=== PATIENT | male | born 1925 | race Caucasian/White ===

== ENCOUNTER 2016-05-29 07:07 | Inpatient (IN) | payer OTHER ==
[2016-05-29] MEDS ORDERED: diphenhydrAMINE 25 MG CAP PO ONE (07:12)
[2016-05-29] MEDS ORDERED: DIAZEPAM 5 MG TAB PO ONE (07:12)
[2016-05-29] MEDS ORDERED: ceFAZolin 2 GM/DEXTROSE 100 ML IV ONE (07:12)
[2016-05-29] MEDS ORDERED: NS 1,000 ML IV ONE (07:12)
[2016-05-29] MEDS ORDERED: BACITRACIN IRRIGATION/NS 50,000 UNITS/1,000 ML BTL IRR ONE (07:12)
--- NOTE | 2016-05-29 07:34 | CPEKG ---
Heart Rate: 61 RR Interval: 984 P-R Interval: 268 QRSD Interval: 100 QT Interval: 432 QTC Interval: 435 P [place]: 45 QRS [place]: -76 EKG Severity - ABNORMAL ECG - EKG Impression: SINUS RHYTHM EKG Impression: MULTIPLE ATRIAL PREMATURE COMPLEXES EKG Impression: FIRST DEGREE AV BLOCK EKG Impression: LAD, CONSIDER LAFB OR INFERIOR INFARCT EKG Impression: BORDERLINE R WAVE PROGRESSION, ANTERIOR LEADS EKG Impression: BORDERLINE T ABNORMALITIES, LATERAL LEADS Electronically Signed By: Una Solis 29-May-2016 08:43:34
[2016-05-29 07:54] LABS: % IMMATURE GRANULYOCYTES 0.3 % (0.0-1.1); ABSOLUTE IMMATURE GRANULOCYTES 0.01 10^3/uL (0.00-0.10); ADD DIFF? NO; ADD MORPH? NO; ADD SCAN? NO; ATYPICAL LYMPHOCYTE FLAG 0 (0-99); FRAGMENT RBC FLAG 0 (0-99); HEMATOCRIT 42.9 % (40.0-51.0); HEMOGLOBIN 14.7 g/dL (13.7-17.5); LEFT SHIFT FLG 0 (0-99); LIPEMIA HEMOLYSIS FLAG 90 (0-99); MEAN CELL HEMOGLOBIN CONCENTR. 34.3 g/dL (32.4-36.7); MEAN CELL VOLUME 93.5 fL (81.5-99.8); MEAN PLATELET VOLUME 11.9 fL (8.7-11.7); PLATELET CLUMPS FLAG 10 (0-99); PLATELET COUNT 110 10^3/uL (150-400); RED BLOOD CELL COUNT 4.59 10^6/uL (4.40-6.38)
[2016-05-29 08:03] LABS: INR 1.11 (0.83-1.16); PROTIME(PATIENT) 14.2 SEC (12.0-15.0)
[2016-05-29 08:21] LABS: ANION GAP 11 mEq/L (8-16); CARBON DIOXIDE 26 mEq/l (22-31); CHLORIDE 105 mEq/L (97-110); CREATININE 1.4 mg/dL (0.7-1.3); GLOMERULAR FILTRATION RATE 48; GLUCOSE 91 mg/dL (70-100); POTASSIUM 4.3 mEq/L (3.5-5.2); SODIUM 142 mEq/L (134-144)
[2016-05-29] MEDS ORDERED: LIDOCAINE 1% 30 ML SDV ONE (08:21)
[2016-05-29] MEDS ORDERED: IOPAMIDOL (ISOVUE-300) 50 ML VIAL IV ONE (08:22)
[2016-05-29] MEDS ORDERED: fentaNYL 100 MCG/2 ML INJ ONE (08:22)
[2016-05-29] MEDS ORDERED: BUPIVACAINE 0.5% 30 ML SDV ONE (08:22)
[2016-05-29] MEDS ORDERED: MIDAZOLAM 2 MG/2 ML VIAL ONE (08:22)
[2016-05-29] MEDS ORDERED: TEMAZEPAM 15 MG CAP PO PRN (10:10)
--- NOTE | 2016-05-29 10:25 | CPEKG ---
Heart Rate: 64 RR Interval: 938 P-R Interval: 246 QRSD Interval: 108 QT Interval: 452 QTC Interval: 467 P [place]: 0 QRS [place]: -72 T Wave [place]: -52 EKG Severity - ABNORMAL ECG - EKG Impression: ATRIAL-PACED COMPLEXES EKG Impression: FIRST DEGREE AV BLOCK EKG Impression: LAD, CONSIDER LAFB OR INFERIOR INFARCT EKG Impression: PROLONGED QT INTERVAL Electronically Signed By: Una Solis 29-May-2016 15:58:27
[2016-05-29] MEDS ORDERED: ZOLPIDEM TARTRATE 5 MG TAB PO PRN (10:26)
[2016-05-29] MEDS ORDERED: OXYCODONE/APAP 5/325 TAB PO PRN (10:33)
[2016-05-29] MEDS ORDERED: IBUPROFEN 200 MG TAB PO ONE ×2 (10:52→11:00)
--- NOTE | 2016-05-29 12:45 | ECHO ---
[id number] + + [address] : : [place] [address] : : [phone] + + Adult Echocardiographic Report + -----+ :Name: Michoacano SANTOsamantharichard Date: 05/29/2016 10:57 AM : : Hospital Admission Number: [id number] Location : [facility]: :: 1925 Gender: Male : :Age: 89 yrs Race: WH : :Reason For Study: Pericardial Effusion s/p pacer : + -----+ MMode/2D Measurements & Calculations IVSd: 2.0 cm LVIDd: 3.7 cm FS: 22.4 % LVPWd: 1.8 cm LVIDs: 2.9 cm EDV(Teich): 59.0 ml ESV(Teich): 31.9 ml EF(Teich): 45.9 % Normal Measurement Values: + + :LVIDd (3.5-5.7cm) IVSd (0.6-1.1cm) LVPWd (0.6-1.1cm) Aortic Root (2.0-3.7cm)Left Atrium (1.5-4.0cm): :LV Vol(d) (76-115ml) LV Vol(s) (29-48ml) [place] Fraction (50-65%)PV Evaristo (0.6- 1.2m/s) TV Evaristo (0.4-1.0m/s) : :MV E Evaristo (0.8-1.0m/s)MV A Evaristo (0.3-1.0m/s)LVOT Evaristo (0.7-1.2m/s) Asc Ao Evaristo ( 0.9-1.8m/s) : + + Left Ventricle The left ventricular cavity is small. There is severe concentric left ventricular hypertrophy. Ejection Fraction = 45%. The left ventricular ejection fraction is calculated at 45.9 %. The left ventricular wall motion is normal. Right Ventricle There is a pacemaker lead in the right ventricle. Atria The left atrial size is normal. There is a catheter/pacemaker lead seen in the right atrium. Mitral Valve The mitral valve leaflets appear normal. There is no evidence of stenosis, fluttering, or prolapse. Tricuspid Valve Normal tricuspid valve. Pericardium/Pleural Small to Moderate pericardial effusion. Conclusion This is a limited study to evaluate pericardial effusion s/p pacer. (1) Left ventricular systolic ejection fraction was mildly reduced (45%) - mild, global hypokinesis (2) Severe, concentric left ventricular hypertrophy (3) Diastolic function was not assessed (4) Grossly normal right ventricular size and function - pacer lead was noted to the right ventricular chamber (5) Normal atrial dimensions (6) Grossly normal mitral valve (7) Poor visualization of the aortic valve (8) Grossly normal tricuspid valve (9) Poor visualization of the pulmonic valve (10) Small to moderate pericardial effusion Final Reading Physician: Axel Carvajal signed on 05/29/2016 12:45 PM Ordering Physician: Raad Gray Performed By: Yoko Barrera
[2016-05-29] MEDS ORDERED: KETOROLAC 30 MG/1 ML SDV ONE (13:34)
[2016-05-29] MEDS ORDERED: KETOROLAC 15 MG/1 ML SDV IVP ONE (14:00)
[2016-05-29] MEDS: IBUPROFEN 200 MG TAB PO SCH ×3 (17:29→22:10)
[2016-05-29] MEDS ORDERED: IBUPROFEN 800 MG TAB PO SCH (22:00)
[2016-05-30 05:35] LABS: % IMMATURE GRANULYOCYTES 0.2 % (0.0-1.1); ABSOLUTE IMMATURE GRANULOCYTES 0.01 10^3/uL (0.00-0.10); ADD DIFF? NO; ADD MORPH? NO; ADD SCAN? NO; ATYPICAL LYMPHOCYTE FLAG 0 (0-99); FRAGMENT RBC FLAG 0 (0-99); HEMATOCRIT 38.7 % (40.0-51.0); HEMOGLOBIN 13.2 g/dL (13.7-17.5); LEFT SHIFT FLG 0 (0-99); LIPEMIA HEMOLYSIS FLAG 90 (0-99); MEAN CELL HEMOGLOBIN 32.1 pg (27.9-34.1); MEAN CELL HEMOGLOBIN CONCENTR. 34.1 g/dL (32.4-36.7); MEAN CELL VOLUME 94.2 fL (81.5-99.8); PLATELET CLUMPS FLAG 0 (0-99); PLATELET COUNT 103 10^3/uL (150-400); RED BLOOD CELL COUNT 4.11 10^6/uL (4.40-6.38); RED CELL DISTRIBUTION WIDTH 12.9 % (11.5-15.2)
[2016-05-30 05:44] LABS: ANION GAP 9 mEq/L (8-16); CARBON DIOXIDE 23 mEq/l (22-31); CHLORIDE 107 mEq/L (97-110); CREATININE 1.2 mg/dL (0.7-1.3); GLOMERULAR FILTRATION RATE 57; GLUCOSE 96 mg/dL (70-100); SODIUM 139 mEq/L (134-144)
[2016-05-30] MEDS: IBUPROFEN 200 MG TAB PO SCH ×2 (07:13→10:32)
[2016-05-30] MEDS ORDERED: Herbals/Supplements -Info Only PO SCH (09:00)
[2016-05-30] MEDS ORDERED: NON-FORMULARY NEW DRUG (Omeprazole [Prilosec 20 Mg] 20 MG) PO SCH (09:00)
--- NOTE | 2016-05-30 09:11 | CPEKG ---
Heart Rate: 73 RR Interval: 822 P-R Interval: 262 QRSD Interval: 88 QT Interval: 428 QTC Interval: 472 P [place]: 2 QRS [place]: -76 T Wave [place]: -6 EKG Severity - ABNORMAL ECG - EKG Impression: ATRIAL-PACED COMPLEXES EKG Impression: FIRST DEGREE AV BLOCK EKG Impression: LAD, CONSIDER LAFB OR INFERIOR INFARCT EKG Impression: BORDERLINE R WAVE PROGRESSION, ANTERIOR LEADS Electronically Signed By: Una Solis 30-May-2016 17:09:43
--- NOTE | 2016-05-30 09:20 | DX ---
Chest, PA and Lateral History: Post pacemaker placement Comparison: December 06, 2015 Findings: A left chest wall pacer device and associated bipolar pacer leads overlie the enlarged hear t. The pacer leads are in good position. There is no pneumothorax. Minimal posterior costophrenic gu tter blunting suggests tiny pleural effusions. The pulmonary vascularity is not plethoric. There is c hronic mild tortuosity of the descending thoracic aorta with atherosclerotic calcification in the arc h. Lungs clear. EKG leads overlie the chest. There is a dissolving tablet in the stomach. Impression: 1. Excellent pacer placement. 2. No pneumothorax. 3. Cardiomegaly without failure. There is prominence of the left ventricular contour suggesting chron ic hypertension.
--- NOTE | 2016-05-30 12:28 | ECHO ---
[id number] + + [address] : : [place] [address] : : [phone] + + Adult Echocardiographic Report + -----+ :Name: Michoacano SANTOsamantharichard Date: 05/30/2016 09:38 AM BP: 107/85 mmHg : : Hospital Admission Number: [id number] Location : 217: :: 1925 Gender: Male : :Age: 89 yrs Race: WH : :Reason For Study: reassess for pericardial effusion : :History: S/P pacemaker : + -----+ MMode/2D Measurements & Calculations IVSd: 1.9 cm LVIDd: 3.8 cm FS: 21.9 % LVPWd: 1.6 cm LVIDs: 3.0 cm EDV(Teich): 63.5 ml ESV(Teich): 35.0 ml EF(Teich): 44.9 % Normal Measurement Values: + + :LVIDd (3.5-5.7cm) IVSd (0.6-1.1cm) LVPWd (0.6-1.1cm) Aortic Root (2.0-3.7cm)Left Atrium (1.5-4.0cm): :LV Vol(d) (76-115ml) LV Vol(s) (29-48ml) Ejec Fraction (50-65%)PV Evaristo (0.6- 1.2m/s) TV Evaristo (0.4-1.0m/s) : :MV E Evaristo (0.8-1.0m/s)MV A Evaristo (0.3-1.0m/s)LVOT Evaristo (0.7-1.2m/s) Asc Ao Evaristo ( 0.9-1.8m/s) : + + Left Ventricle There is severe concentric left ventricular hypertrophy. Left ventricular systolic function is mild to moderately reduced. Ejection Fraction = 40 to 45%. Pericardium/Pleural Small to Moderate pericardial effusion. The pericardial effusion has increased slightly in size compared to 05/29/16. Conclusion Limited study to reassess pericardial effusion. Small to Moderate pericardial effusion. The pericardial effusion has increased slightly in size compared to 05/29/16. There is severe concentric left ventricular hypertrophy. Left ventricular systolic function is mild to moderately reduced. Ejection Fraction = 40 to 45%. Final Reading Physician: Axel Woods signed on 05/30/2016 12:27 PM Ordering Physician: Raad Gray Performed By: Katty Cancino
--- NOTE | 2016-05-30 12:28 | PDCARPN ---
Cardiology Progress Note Chief Complaint: s/p pacer Assessment/Plan: Assessment: 89 y/o M with a history of fatigue related to chronotropic incompetence and pauses. He is s/p DDDR [place] pacer on 05/[address] Gray. He had CP post procedure and was found to have a small pericardial effusion which was thought to be more related to pericarditis than lead perforation. His pain is controlled with NSAIDs. A echo the following day showed a small progression of the effusion to mild to moderate. Also, had a small hematoma which is stable. Will continue to monitor one additional day and get limited echo tomorrow. He also has severe LVH and a CMP. Plan: 1. s/p pacer complicated by small hematoma and pericarditis. - limited echo tomorrow - monitor hematoma - likely d/c tomorrow. - continue NSAIDS 05/30/16 12:21 Subjective: PT denies any CP or SOB. Objective: Vital Signs (8 Hrs) Temp Pulse Resp BP Pulse Ox 05/30/16 11:56 36.9 C 73 19 102/67 98 05/30/16 07:54 37.0 C 85 16 107/85 H 97 Intake/Output (24 Hrs) 05/29/16 05/30/16 05/31/16 05:59 05:59 05:59 Intake Total 1460 Output Total 1335 Balance 125 Intake: Oral (ml) 850 IV Intake (ml) 550 IV Infused (ml) 60 ceFAZolin 1 GM/DEXTROSE 60 50 ml @ 200 mls/hr IV Q8HRS [facility] Rx#:[id number] Output: Urine (ml) 1335 Urinal 1335 Other: Weight 68 kg Number of Voids Urinal 1 Result Diagrams: 05/30/16 05:02 05/30/16 05:02 EKG: intermittant pacing - Physical Exam Constitutional: WDWN Cardiovascular: regular rate and rhythm, no murmurs, no rubs, other (chest wall pacer site shows small hematoma with ecchymosis. No infection) Respiratory: clear to auscultate bilat, no crackles, no wheezes Skin: no edema Neurologic: AAOx3 ICD10 Worksheet Patient Problems: Problems Problem Status Diagnosed Pacemaker complications Acute - ICD10 Problem Qualifiers (1) Pacemaker complications
[2016-05-30] MEDS: GLUCOSAMINE/CHONDROITIN CAP PO SCH (13:50)
[2016-05-30] MEDS: CHOLECALCIFEROL VIT D3 2,000 UNITS TAB/CAP PO SCH (13:50)
[2016-05-30] MEDS: PANTOPRAZOLE SODIUM 40 MG TAB PO SCH (13:51)
--- NOTE | 2016-05-30 15:01 | EPPROC ---
Electrophysiology Procedure Note: PROCEDURE PERFORMED: * Implantation of an A/V Pacemaker * Subclavian vein angiography * Fluoroscopy INDICATION: Pt with multiple episodes of pauses and documented chronotropic incompetence with resulting fatigue and dizziness. Hence it was decided to implant dual chamber pacemaker. PROCEDURE NOTE: Patient presented to the cardiac catherization laboratory in a fasting, post absorptive state. Cardiac cathead worker nurse administered moderate sedation. The left infraclavicular area was prepped and draped in the usual sterile fashion. Lidocaine plus bupivacaine was used for local anesthesia. Left subclavian venography was performed by injection of iodinated contrast into the left antecubital vein. This was done to assure patency of the vein and also to assess for any anatomical aberrations. Using a combination of blunt and sharp dissection and electrocautery, the dissection was carried down to the prepectoral fascia. All bleeding was controlled with electrocautery. Fluoroscopy was utilized during the entire procedure for venous access and placement of the leads. Using the usual technique, left celphalic vein was accessed and a glidewire was placed. Through this initially a 9F and later a 7F sheath was passed. Placement of the guidewires into the venous system was confirmed by low- pressure blood return and also by visualizing the guidewires advancing into the inferior vena cava. A purse string suture was applied around the guidewires. An active fixation ventricular lead was advanced into the right ventricular apex and screwed in place. An active fixation atrial lead was advanced into the right atrial appendage and screwed in place. The peel away sheaths were removed. Pacing thresholds, sensing parameters and lead impedances were measured. There was no diaphragmatic stimulation at maximum output. The leads were sutured to the prepectoral fascia with 3 nonabsorbable sutures each. The pocket was created and it was flushed using antibiotic solution. It was inspected for any bleeding. The leads were attached to the pacemaker securely. The pacemaker was inserted into the pocket and secured in place with a nonabsorbable suture. Fluoroscopy was performed in CELIS and VÍCTOR planes to verify right-sided placement of the leads. Also fluoroscopy of the pacemaker pocket was performed. The pacemaker pocket was closed in 3 layers with absorbable vicryl sutures. Steristrips were placed. Appropriate dressing was applied. The patient left the cardiac catheterization laboratory in stable condition. Serial Numbers: * Device: [employer] [address] [id number] * Atrial Lead: [employer] Tendril 8TC [id number] * Ventricular Lead: [place] Tendril 8TC [id number] Stimulation Thresholds & Impedance Measurements: * Atrial Lead 2.9mV, 0.8@0.5ms, 448Ohms * Ventricular Lead 5.8mV, 0.4@0.4ms, 463Ohms Rik Pacing Parameters * Pacing mode: DDDR * Lower rate: 60 * Upper tracking rate: 120 * Upper sensor rate: 120 Patient Problems: Problems Problem Status Diagnosed Pacemaker complications Acute
[2016-05-31] MEDS: IBUPROFEN 200 MG TAB PO SCH ×4 (01:19→22:19)
[2016-05-31] MEDS: CHOLECALCIFEROL VIT D3 2,000 UNITS TAB/CAP PO SCH (09:27)
[2016-05-31] MEDS: PANTOPRAZOLE SODIUM 40 MG TAB PO SCH (09:28)
[2016-05-31] MEDS: GLUCOSAMINE/CHONDROITIN CAP PO SCH (09:28)
[2016-05-31] MEDS: DOCUSATE SODIUM 100 MG CAP PO SCH (09:53)
[2016-05-31] MEDS ORDERED: PNEUMOC 13-VAL CONJ-DIP CRM/PF 0.5 ML SYR IM ONE (10:57)
--- NOTE | 2016-05-31 11:20 | ECHO ---
[id number] + + [address] : : [facility] [address] : : [phone] + Adult Echocardiographic Report + -----+ :Name: Mae SANTO Date: 05/31/2016 07:27 AM : : Hospital Admission Number: [id number] Location : 217: :: 1925 Gender: Male Height: 67 in : :Age: 89 yrs Race: WH Weight: 170 lb : :Reason For Study: Eval pericardial effusion : : BSA: 1.9 meters2 : + -----+ Left Ventricle There is moderate concentric left ventricular hypertrophy. The left ventricular ejection fraction is normal. The left ventricular wall motion is normal. Pericardium/Pleural Small to Moderate pericardial effusion. Conclusion Limited 2-D echo No significant change from yesterday's study. Small to Moderate pericardial effusion. The left ventricular ejection fraction is normal. The left ventricular wall motion is normal. There is moderate concentric left ventricular hypertrophy. In comparison to prior echocardiogram from yesterday, there does not appear to be a substantial change noted. Final Reading Physician: Axel Carvajal signed on 05/31/2016 11:20 AM Ordering Physician: Anette Coon Performed By: Miryam Cheema, KIMBERLYCS
--- NOTE | 2016-05-31 12:38 | PDCARPN ---
Cardiology Progress Note Chief Complaint: No complaints today. Patient was initially seen earlier today, and reported that he felt well. Patient just seen again, and feels that the "hypoglycemia" might be acting up. Assessment/Plan: Assessment: Patient is an 89 y/o male with history of SSS s/p PPM (05/29/16) with small pericardial effusion post procedure with progression. Belief that the patient had a small degree of pericarditis post pacer implant (rather than lead perforation). No pocket revision or lead revision was performed (or indicated) . Patient feeling well today, but the second time he was visited, he reported that he was not feeling as well as initially. Echocardiogram pre Pacer without effusion. Post pacer, a small to moderate pericardial effusion was noted. Today's echocardiogram continues to reveal a small to moderate effusion. No complaints of chest pains or pressure. No PND or orthopnea. Plan: (1) Recommendations for patient to stay one day further (2) Would continue therapy on NSAIDs as at present (3) Ambulation today (4) PO fluids should be maintained today Subjective: No cardiovascular complaints Reviewed/Discussed With: multidisciplinary team Time Spent With Patient: 20 minutes Objective: Vital Signs (8 Hrs) Temp Pulse Resp BP Pulse Ox 05/31/16 11:18 36.7 C 78 15 96/59 L 91 L 05/31/16 07:37 36.8 C 70 20 114/71 91 L Intake/Output (24 Hrs) 05/30/16 05/31/16 06/01/16 05:59 05:59 05:59 Intake Total 1460 700 Output Total 1335 Balance 125 700 Intake: Oral (ml) 850 700 IV Intake (ml) 550 IV Infused (ml) 60 ceFAZolin 1 GM/DEXTROSE 60 50 ml @ 200 mls/hr IV Q8HRS [facility] Rx#:[id number] Output: Urine (ml) 1335 Urinal 1335 Other: Weight 68 kg Intake Quantity npo after mn Sufficient Number of Voids Urinal 1 Toilet 1 Result Diagrams: 05/30/16 05:02 05/30/16 05:02 Telemetry: sinus rhythm with intermittent atrial pacing - Physical Exam Constitutional: WDWN, healthy appearing, no apparent distress Eyes: PERRL Ears, Nose, Mouth, Throat: moist mucous membranes Cardiovascular: regular rate and rhythm, systolic murmur Peripheral Pulses: 2+: dorsalis-pedis (R), dorsalis-pedis (L) Respiratory: clear to auscultate bilat, no crackles Gastrointestinal: normoactive bowel sounds Skin: no edema Musculoskeletal: no muscular tenderness Neurologic: AAOx3, CN II-XII grossly intact Psychiatric: cooperative, interactive, following commands ICD10 Worksheet Patient Problems: Problems Problem Status Diagnosed Pacemaker complications Acute
[2016-06-01 00:09] VITALS: O2SAT 94
[2016-06-01 08:45] VITALS: BP 94/51; PULSE 68; RESP 14; TEMP 98.2
[2016-06-01] MEDS: GLUCOSAMINE/CHONDROITIN CAP PO SCH (09:12)
[2016-06-01] MEDS: DOCUSATE SODIUM 100 MG CAP PO SCH (09:12)
[2016-06-01] MEDS: PANTOPRAZOLE SODIUM 40 MG TAB PO SCH (09:12)
[2016-06-01] MEDS: CHOLECALCIFEROL VIT D3 2,000 UNITS TAB/CAP PO SCH (09:13)
[2016-06-01] MEDS: IBUPROFEN 200 MG TAB PO SCH ×2 (09:13→09:26)
--- NOTE | 2016-06-01 09:33 | PDCARPN ---
Cardiology Progress Note Chief Complaint: No complaints today. Patient feels that this morning is one of his best since the admission Assessment/Plan: Assessment: 06-01-16 No voiced cardiovascular complaints today. No chest pains or pressure. Echocardiogram with possible, slight worsening of the fluid to the pericardium. There appears to be slightly more "wiggle" to the right ventricular chamber ( very subjective). Patient reporting that he feels very good today AND slept very well overnight. No PND or orthopnea. No lower extremity swelling has been noted. Eating every 2-3 hours led to an improvement in the patient's "hypoglycemic" feelings. 05-31-16 Patient is an 89 y/o male with history of SSS s/p PPM (05/29/16) with small pericardial effusion post procedure with progression. Belief that the patient had a small degree of pericarditis post pacer implant (rather than lead perforation). No pocket revision or lead revision was performed (or indicated) . Patient feeling well today, but the second time he was visited, he reported that he was not feeling as well as initially. Echocardiogram pre Pacer without effusion. Post pacer, a small to moderate pericardial effusion was noted. Today's echocardiogram continues to reveal a small to moderate effusion. No complaints of chest pains or pressure. No PND or orthopnea. Plan: (1) Plan to discharge the patient to home today (2) Will arrange for the patient to have outpatient follow up tomorrow (if possible) with [facility] (3) Would continue with ambulation as at present at home (4) PO fluids should continue (5) I spoke with Dr. Tereza Gray today, and he is in agreement. Furthermore, we have provided the patient with Dr. Gray's cell phone for any questions that arise Subjective: Patient feeling well today. No cardiovascular complaints Reviewed/Discussed With: multidisciplinary team Time Spent With Patient: 20 minutes Objective: Vital Signs (8 Hrs) Temp Pulse Resp BP Pulse Ox 06/01/16 08:42 36.8 C 68 14 94/51 L 94 06/01/16 04:00 36.7 C 80 17 106/62 94 Intake/Output (24 Hrs) 05/31/16 06/01/16 06/02/16 05:59 05:59 05:59 Intake Total 700 1400 Balance 700 1400 Intake: Oral (ml) 700 1400 Other: Intake Quantity npo after mn Yes Sufficient Number of Voids Toilet 1 2 Number of Stools Toilet 1 Result Diagrams: 05/30/16 05:02 05/30/16 05:02 Telemetry: intermittent ventricular pacing - Physical Exam Constitutional: WDWN, healthy appearing, no apparent distress Eyes: PERRL, EOMI Ears, Nose, Mouth, Throat: moist mucous membranes Cardiovascular: regular rate and rhythm, systolic murmur Peripheral Pulses: 2+: dorsalis-pedis (R), dorsalis-pedis (L) Respiratory: clear to auscultate bilat, no crackles, no wheezes Skin: no rashes, no edema Musculoskeletal: no muscular tenderness Neurologic: AAOx3, CN II-XII grossly intact Psychiatric: cooperative, interactive, following commands ICD10 Worksheet Patient Problems: Problems Problem Status Diagnosed Pacemaker complications Acute
--- NOTE | 2016-06-01 09:41 | PDDCSUM ---
Discharge Summary Discharge Summary: ADMISSION DATE: 05-29-16 DISCHARGE DATE: 06-01-16 PROCEDURES PERFORMED: (1) PERMANENT PACER IMPLANTATION (2) SERIAL ECHOCARDIOGRAPHY SUMMARY: Patient was taken to the EP lab with placement of the PPM on 05-29-16. Post procedure, there appeared to be some pericardial effusion noted. Given this findings, and the approximation to the patient's pacer placement, we opted to keep the patient a few additional days and monitor the pericardial fluid size. Over the next several days, there continued to be the presence of pericardial fluid. No haemodynamic compromise has been appreciated. Today, the patient reports that he is feeling the best he has felt since the admission. Echocardiogram with questionable progression of fluid. I did speak with Dr. Tereza Gray about the findings noted, and the patient's lack of symptoms. Plan to discharge the patient to home today. Would arrange for patient to be seen by cardiology tomorrow or Thursday
--- NOTE | 2016-06-01 12:10 | ECHO ---
[id number] + + [address] : : [place] [address] : : [phone] + + Adult Echocardiographic Report + -----+ :Name: Mae SANTO Date: 06/01/2016 07:34 AM : : Hospital Admission Number: [id number] Location : 217: :: 1925 Gender: Male : :Age: 89 yrs Race: WH : :Reason For Study: Eval pericardial effusion : :History: New pacer : + -----+ Pericardium/Pleural Moderate size pericardial effusion. Conclusion Limited 2-D echo. Moderate size pericardial effusion - there may be some progression or evolution of the effusion. No tamponade. Final Reading Physician: Axel Carvajal signed on 06/01/2016 12:09 PM Ordering Physician: Raad Gray Performed By: Miryam Cheema, KIMBERLYCS
== END 2016-06-01 12:19 | disposition home or self-care (01) | DRG 243 ==
LOC: FCATH 07:07 → F2W 10:09 → OBSVTOIN 05-31 12:39
PROVIDERS: ADMIT Internal Medicine Cardiovascular Disease; ATTEND Internal Medicine Cardiovascular Disease
PROC: 02HK3JZ Insertion of Pacemaker Lead into Right Ventricle, Percutaneous Approach (ICD-10-PCS; principal; 2016-05-30)
PROC: 02H63JZ Insertion of Pacemaker Lead into Right Atrium, Percutaneous Approach (ICD-10-PCS; principal; 2016-05-30)
PROC: 0JH606Z Insertion of Pacemaker, Dual Chamber into Chest Subcutaneous Tissue and Fascia, Open Approach (ICD-10-PCS; principal; 2016-05-30)
DX: I49.5 Sick sinus syndrome (principal); I31.3 Pericardial effusion (noninflammatory); R55 Syncope and collapse; R53.83 Other fatigue
CPT/HCPCS: C1769; C1785; C1898; G0009; G0378; J0690; J1885; J2250; J3010; Q9967

== ENCOUNTER 2016-06-04 07:51 | Inpatient (IN) | payer OTHER ==
--- NOTE | 2016-06-04 08:02 | EDPHY ---
H & P Time Seen by Provider: 06/04/16 07:56 HPI/ROS: CHIEF COMPLAINT: Chest fullness and bruising HISTORY OF PRESENT ILLNESS: The patient is an 89-year-old man who presents by EMS to the emergency department for chest fullness and bruising after pacemaker placement. 6 days ago he had a dual-chamber pacemaker placed by Dr. Gray for history of multiple pauses and chronotropic incompetence resulting in fatigue and dizziness. The procedure was complicated by a pericardial effusion afterwards so he stayed in the hospital for 3 days receiving serial echocardiograms. There was very minimal change in the size of his pericardial effusion. He was discharged on the . He denies fevers or cough or difficulty breathing. He does state that occasionally has to take a deep breath but does not feel overtly short of breath. He denies chest pain. He is concerned that the fluid around his heart is increased. He is not on any blood thinners. REVIEW OF SYSTEMS: Constitutional: denies: chills, fever, recent illness, recent injury EENTM: denies: blurred vision, double vision, nose congestion Respiratory: See HPI Cardiac: See HPI Gastrointestinal/Abdominal: denies: abdominal pain, diarrhea, nausea, vomiting, blood streaked stools Genitourinary: denies: dysuria, frequency, hematuria, pain Musculoskeletal: denies: joint pain, muscle pain Skin: denies: lesions, rash, jaundice, bruising Neurological: denies: headache, numbness, paresthesia, tingling, dizziness, weakness Hematologic/Lymphatic: denies: blood clots, easy bleeding, easy bruising Immunologic/allergic: denies: HIV/AIDS, transplant EXAM: GENERAL: Well-appearing, well-nourished and in no acute distress. HEAD: Atraumatic, normocephalic. EYES: Pupils equal round and reactive to light, extraocular movements intact, sclera anicteric, conjunctiva are normal. ENT: TMs normal, nares patent, oropharynx clear without exudates. Moist mucous membranes. NECK: Normal range of motion, supple without lymphadenopathy or JVD. LUNGS: Breath sounds clear to auscultation bilaterally and equal. No wheezes rales or rhonchi. HEART: Irregular rhythm without murmurs, rubs or gallops. Significant bruising to chest, abdomen and flank likely from previous procedure ABDOMEN: Soft, nontender, normoactive bowel sounds. No guarding, no rebound. No masses appreciated. BACK: No CVA tenderness, no spinal tenderness, step-offs or deformities EXTREMITIES: Normal range of motion, no pitting or edema. No clubbing or cyanosis. NEUROLOGICAL: Cranial nerves II through XII grossly intact. Normal speech, normal gait. 5/5 strength, normal movement in all extremities, normal sensation PSYCH: Normal mood, normal affect. SKIN: Warm, dry, normal turgor, no visible rashes or lesions. Source: Patient Exam Limitations: No limitations - Medical/Surgical History Hx Asthma: No Hx Chronic Respiratory Disease: No Hx Diabetes: No Hx Cardiac Disease: Yes Hx Renal Disease: No Hx Cirrhosis: No Hx Alcoholism: No Hx HIV/AIDS: No Hx Splenectomy or Spleen Trauma: No Other PMH: arthritis, skin CA, hypoglycemia, insomnia, GERD, SOB, lower extremity swelling - Family History Significant Family History: Hypertension - Social History Smoking Status: Never smoked Alcohol Use: Sober Drug Use: None Constitutional: Initial Vital Signs Temperature (C) 36.3 C 06/04/16 07:52 Heart Rate 73 06/04/16 07:52 Respiratory Rate 20 06/04/16 07:52 Blood Pressure 121/88 H 06/04/16 07:52 O2 Sat (%) 97 06/04/16 07:52 O2 Delivery Mode Room Air Allergies/Adverse Reactions: latex Allergy (Verified 05/29/16 07:42) Home Medications: Medication Instructions Recorded Cholecalciferol Vit D3 [Vitamin D3 2,000 units PO DAILY 05/29/16 2000 units tab (OTC)] Glucosamine/Chondroitin 1 each PO DAILY 05/29/16 [Glucosamine/Chondroitin (*)] Herbals/Supplements -Info Only 1 ea PO DAILY 05/29/16 Omeprazole [Prilosec 20 mg] 20 mg PO DAILY 05/29/16 Temazepam 7.5 mg PO HS PRN 06/04/16 Medical Decision Making - Diagnostics EKG Interpretation: An EKG obtained and was read and documented in trace view. Please see trace view for full reading and report. Sinus rhythm, pacer spikes not visible. First-degree block, similar to previous ED Course/Re-evaluation: 8:20 a.m. echocardiogram reveals moderately increased pericardial effusion with some right atrial collapse maybe right ventricle as well. The helicopter technician has paged Cardiology. patient is also complaining of a mild headache since last night. Will treat him with Tylenol for this. No neurologic deficits. 8:45 a.m. I spoke with Dr. Gray over the phone who is on vacation. He is relieved that his patient arrived. 8:50 a.m. I discussed the case with Dr. Steven Moctezuma who is concerned about a lead perforating the myocardium. He has ordered a CT scan. I will place a bed for admission. Differential Diagnosis: Partial list of the Differential diagnosis considered include but were not limited to; pericardial effusion, myocardial perforation, pericardial tamponade and although unlikely based on the history and physical exam, I also considered PE, pneumonia. - Data Points Laboratory Results: Laboratory Results 06/04/16 08:15 06/04/16 08:15 06/04/16 08:15 WBC 4.69 10^3/uL (3.80-9.50) RBC 3.81 L 10^6/uL (4.40-6.38) Hgb 12.1 L g/dL (13.7-17.5) Hct 37.1 L % (40.0-51.0) MCV 97.4 fL (81.5-99.8) MCH 31.8 pg (27.9-34.1) MCHC 32.6 g/dL (32.4-36.7) RDW 13.2 % (11.5-15.2) Plt Count 101 L 10^3/uL (150-400) MPV 12.1 H fL (8.7-11.7) Neut % (Auto) 76.1 H % (39.3-74.2) Lymph % (Auto) 12.2 L % (15.0-45.0) Bacon % (Auto) 7.5 % (4.5-13.0) Eos % (Auto) 3.6 % (0.6-7.6) Baso % (Auto) 0.4 % (0.3-1.7) Nucleat RBC Rel Count 0.0 % (0.0-0.2) Absolute Neuts (auto) 3.57 10^3/uL (1.70-6.50) Absolute Lymphs (auto) 0.57 L 10^3/uL (1.00-3.00) Absolute Monos (auto) 0.35 10^3/uL (0.30-0.80) Absolute Eos (auto) 0.17 10^3/uL (0.03-0.40) Absolute Basos (auto) 0.02 10^3/uL (0.02-0.10) Absolute Nucleated RBC 0.00 10^3/uL (0-0.01) Immature Gran % 0.2 % (0.0-1.1) Immature Gran # 0.01 10^3/uL (0.00-0.10) PT 14.5 SEC (12.0-15.0) INR 1.14 (0.83-1.16) APTT 27.7 SEC (23.0-38.0) Sodium 145 H mEq/L (134-144) Potassium 4.3 mEq/L (3.5-5.2) Chloride 109 mEq/L (97-110) Carbon Dioxide 24 mEq/l (22-31) Anion Gap 12 mEq/L (8-16) BUN 27 H mg/dL (7-23) Creatinine 1.1 mg/dL (0.7-1.3) Estimated GFR > 60 Glucose 91 mg/dL (70-100) Calcium 9.0 mg/dL (8.5-10.4) Medications Given: Discontinued Medications Ketorolac Tromethamine (Toradol) 30 mg IVP ONCE ONE Stop: 06/04/16 11:21 Last Admin: 06/04/16 11:43 Dose: 30 mg Departure - Departure Disposition: [facility] Inpatient Acute Clinical Impression: Pericardial effusion Condition: Fair
--- NOTE | 2016-06-04 08:15 | CPEKG ---
Heart Rate: 66 RR Interval: 909 P-R Interval: 260 QRSD Interval: 104 QT Interval: 436 QTC Interval: 457 P [place]: 83 QRS [place]: -62 T Wave [place]: -7 EKG Severity - ABNORMAL ECG - EKG Impression: SINUS RHYTHM EKG Impression: FIRST DEGREE AV BLOCK EKG Impression: LEFT ANTERIOR FASCICULAR BLOCK EKG Impression: CONSIDER ANTERIOR INFARCT EKG Impression: BORDERLINE T ABNORMALITIES, INFERIOR LEADS EKG Impression: Pacer spikes not visible Electronically Signed By: Konstantin Blackmon 04-Jun-2016 08:24:01
[2016-06-04] MEDS ORDERED: ACETAMINOPHEN 500 MG TAB ONE (08:22)
[2016-06-04 08:30] LABS: % IMMATURE GRANULYOCYTES 0.2 % (0.0-1.1); ABSOLUTE IMMATURE GRANULOCYTES 0.01 10^3/uL (0.00-0.10); ADD DIFF? NO; ADD MORPH? NO; ADD SCAN? NO; ATYPICAL LYMPHOCYTE FLAG 0 (0-99); FRAGMENT RBC FLAG 0 (0-99); HEMATOCRIT 37.1 % (40.0-51.0); HEMOGLOBIN 12.1 g/dL (13.7-17.5); LEFT SHIFT FLG 0 (0-99); LIPEMIA HEMOLYSIS FLAG 80 (0-99); MEAN CELL HEMOGLOBIN 31.8 pg (27.9-34.1); MEAN CELL HEMOGLOBIN CONCENTR. 32.6 g/dL (32.4-36.7); MEAN CELL VOLUME 97.4 fL (81.5-99.8); MEAN PLATELET VOLUME 12.1 fL (8.7-11.7); PLATELET CLUMPS FLAG 0 (0-99); PLATELET COUNT 101 10^3/uL (150-400); RED BLOOD CELL COUNT 3.81 10^6/uL (4.40-6.38); RED CELL DISTRIBUTION WIDTH 13.2 % (11.5-15.2)
[2016-06-04 08:40] LABS: APTT 27.7 SEC (23.0-38.0); INR 1.14 (0.83-1.16); PROTIME(PATIENT) 14.5 SEC (12.0-15.0)
[2016-06-04 08:59] LABS: ANION GAP 12 mEq/L (8-16); CARBON DIOXIDE 24 mEq/l (22-31); CHLORIDE 109 mEq/L (97-110); CREATININE 1.1 mg/dL (0.7-1.3); GLOMERULAR FILTRATION RATE > 60; GLUCOSE 91 mg/dL (70-100); POTASSIUM 4.3 mEq/L (3.5-5.2); SODIUM 145 mEq/L (134-144)
--- NOTE | 2016-06-04 09:57 | CT ---
CT Head Without Contrast History: Severe headache. Comparison: None available. Technique: Axial unenhanced images were obtained from the vertex through the skull base. Dose reduct ion techniques were utilized. Findings: Kelly-white differentiation is preserved. There is mild diffuse cerebral atrophy with scatte red periventricular and subcortical low attenuation, suggesting chronic microvascular ischemic gliosi s. No intracranial hemorrhage is identified. No extraaxial fluid collections are identified. There is no mass, mass effect, or evidence of infarct. Atherosclerotic calcification is present in the dist al internal carotid and vertebral arteries. The skull and skull base are unremarkable. Mild mucous m embrane thickening is present in the paranasal sinuses. The mastoid air cells are clear. Impression: 1. No acute intracranial findings. 2. Diffuse cerebral atrophy with scattered periventricular and subcortical low attenuation consistent with chronic microvascular ischemic gliosis.
--- NOTE | 2016-06-04 10:14 | DX ---
AP Semi-Upright and Lateral Chest History: Chest pain. The patient has had recent pacemaker placement; comparison previous examination May 30, 2016. Findings: The bipolar cardiac pacer is in stable position. No pneumothorax is identified. There is mi ld elevation of the right hemidiaphragm. No focal pulmonary consolidation is identified. Basilar opac ities are probably atelectasis. The heart is enlarged. Pulmonary vascularity is normal. Impression: Cardiac enlargement with other findings as detailed above.
--- NOTE | 2016-06-04 10:57 | CT ---
CT Chest Unenhanced History: Status post pacemaker placement, concern for perforation. Comparison: PA and lateral chest May 30, 2016. Technique: Axial unenhanced images were obtained through the chest. Coronal MIPs were performed. Dose reduction techniques were utilized. The study was initially performed without gating. The patient wa s brought back for repeat CT with gating. Findings: Tiny bilateral pleural effusions are present. Scattered bullae are noted. Scattered tiny no ncalcified pulmonary nodules are present, including a reference 3 mm left upper lobe nodule (series 6 image 23). Scattered granulomas are present. There is a moderate pericardial effusion measuring 38 H [place] units, consistent with blood products. The right atrial lead appears to extend into the per icardium, suggesting this is the perforated lead. The right ventricular lead approaches the epicardia l fat, however, appears to be within the right ventricle, although myocardial thinning slightly limit s sensitivity. Moderate cardiomegaly is present. Three-vessel coronary artery atherosclerosis is note d. Degenerative change is present in the spine with partial fusion of T12 and L1 eccentric to the rig ht with moderate vertebral spondylosis. Mild compression fractures at multiple levels are noted. A 5 cm simple cyst extends from the superior right kidney, incompletely visualized. Impression: 1. Moderate hemopericardium with perforation of the right atrial pacemaker lead with no definite perf oration of the right ventricular lead. 2. Tiny pulmonary nodules of doubtful clinical significance. If the patient is a smoker or has a hist ory of malignancy, unenhanced low dose chest CT is recommended for follow up in 12 months. Otherwise , no further follow up is needed per Fleischner Society criteria. 3. Coronary artery atherosclerosis 4. Additional findings as above. Findings discussed with Steven Moctezuma MD June 04, 2016, at 10:47 a.m.
[2016-06-04] MEDS ORDERED: TEMAZEPAM 15 MG CAP PO PRN (11:18)
[2016-06-04] MEDS ORDERED: KETOROLAC 30 MG/1 ML SDV IVP ONE (11:20)
[2016-06-04] MEDS ORDERED: TEMAZEPAM 7.5 MG PO PRN (11:26)
[2016-06-04] MEDS ORDERED: Temazepam 7.5 MG PO PRN (11:27)
[2016-06-04] MEDS: PANTOPRAZOLE SODIUM 40 MG TAB PO SCH (11:43)
[2016-06-04] MEDS: COLCHICINE 0.6 MG CAP/TAB PO SCH ×2 (11:44→21:05)
[2016-06-04] MEDS ORDERED: ACETAMINOPHEN 325 MG TAB PO PRN (12:02)
--- NOTE | 2016-06-04 12:51 | SOAPPROG ---
[facility]OT[facility] Progress Note Assessment/Plan: Assessment: Mr. Lopez presents now 5 days after a dual-chamber pacemaker was implanted with some clinical evidence at the time of implantation of a lead perforation with an increasing pericardial effusion associated with evidence of a probable microperforation of the right atrial lead. Fortunately, he is hemodynamically stable. Interrogation of his pacemaker indicates normal device function. While he does have a modest sized pericardial effusion there is no indication of pericardial tamponade. This case was discussed with cardiothoracic surgery as well. At the present time, I think that we can manage him conservatively. I have started him on nonsteroidal anti-inflammatory agents in the form of Toradol as well as colchicine. He was placed on a proton pump inhibitor for protection against peptic ulcer disease. I will plan to perform serial electrocardiograms as well as laboratory tests. I will repeat an echocardiogram here in the next several days. As long as we see clinical improvement I think we will try to maintain his lead. If he has worsening symptoms, fails to respond to therapy, develops declining pacemaker function or has objective findings of an increasing pericardial effusion, at that point I think that we should extract the right atrial lead. This would necessitate placement of a pericardial drain and to have cardiothoracic surgery on standby. This plan was discussed with he and his family. They are currently in agreement. 06/04/16 12:48 Subjective: 89-year-old male with a history of sick sinus syndrome status post dual-chamber pacemaker implantation 05/30/2015, cardiomyopathy (severe left ventricular hypertrophy), moderate valvular heart disease with moderate mitral and tricuspid regurgitation and chronic heart failure with preserved ejection fraction who comes to the emergency department today with complaints of respiratory phasic chest discomfort and fatigue. His pacemaker was implanted on the without significant intra operative complications. The patient did experience postprocedural chest discomfort and developed a small to moderate- sized pericardial effusion. It was like to, at that time, to manage him conservatively and in the hospital he did well with nonsteroidal anti- inflammatory agents. Apparently, as an outpatient he has not been taking these medications. He comes in today stating that he he feels his chest discomfort has worsened. He notes this mostly when he takes a deep breath. If he sitting still he has minimal symptoms. He has also had some fatigue. A bedside echo was performed. This demonstrated a moderate-sized pericardial effusion without findings consistent with pericardial tamponade. Subsequently, we performed a gated chest CT scan. This indicated the probability of a small perforation of the right atrial lead. The right ventricular lead appeared to be intact. The device itself was interrogated. The right ventricular thresholds were stable. There was very slight increase in the capture threshold within the right atrium. Objective: Vital Signs Temp Pulse Resp BP Pulse Ox 36.4 C 72 18 113/69 93 06/04/16 11:03 06/04/16 11:03 06/04/16 11:03 06/04/16 11:03 06/04/16 11:03 PT 14.5 SEC (12.0-15.0) 06/04/16 08:15 INR 1.14 (0.83-1.16) 06/04/16 08:15 Physical Exam - Physical Exam General Appearance: WD/WN, no apparent distress Neck: non-tender, full range of motion Respiratory: lungs clear Cardiac/Chest: normal peripheral pulses, regular rate, rhythm, other (There is significant ecchymoses surrounding his pacemaker implantation site with evidence of a small hematoma), No edema, No gallop, No JVD Peripheral Pulses: 2+: carotid (R), carotid (L) Abdomen: non-tender Neuro/Psych: no motor/sensory deficits, alert, normal mood/affect, oriented x 3 ICD10 Worksheet Patient Problems: Problems Problem Status Diagnosed Pacemaker complications Acute Pericardial effusion Acute
--- NOTE | 2016-06-04 13:05 | ECHO ---
[id number] + + [address] : : [place] [address] : : [phone] + + Adult Echocardiographic Report + ----+ :Name: Michoacano SANTOsari Date: 06/04/2016 08:18 AM : : Hospital Admission Number: [id number] Location : ER: :: 1925 Gender: Male : :Age: 89 yrs Race: WH : :Reason For Study: Eval LV Fx : :History: Post Pacemaker, CP : + ----+ MMode/2D Measurements & Calculations IVSd: 1.5 cm LVIDd: 3.8 cm FS: 23.5 % Ao root diam: 3.9 cm LVPWd: 1.8 cm LVIDs: 2.9 cm EDV(Teich): 61.6 ml ACS: 1.6 cm ESV(Teich): 32.2 ml EF(Teich): 47.7 % Normal Measurement Values: + + :LVIDd (3.5-5.7cm) IVSd (0.6-1.1cm) LVPWd (0.6-1.1cm) Aortic Root (2.0-3.7cm)Left Atrium (1.5-4.0cm): :LV Vol(d) (76-115ml) LV Vol(s) (29-48ml) Ejec Fraction (50-65%)PV Evaristo (0.6- 1.2m/s) TV Evaristo (0.4-1.0m/s) : :MV E Evaristo (0.8-1.0m/s)MV A Evaristo (0.3-1.0m/s)LVOT Evaristo (0.7-1.2m/s) Asc Ao Evaristo ( 0.9-1.8m/s) : + + Doppler Measurements & Calculations MV E max evaristo: 45.4 cm/sec MV A max evaristo: 54.3 cm/sec MV E/A: 0.84 Left Ventricle The left ventricle is normal in size. There is moderate to severe concentric left ventricular hypertrophy. Left ventricular systolic function is low normal. Ejection Fraction = 50-55%. Right Ventricle The right ventricle is normal size. Atria The left atrial size is normal. Right atrial size is normal. Mitral Valve The mitral valve is normal. There is no mitral valve stenosis. There is trace mitral regurgitation. Tricuspid Valve The tricuspid valve is normal in structure and function. There is trace tricuspid regurgitation. Aortic Valve The aortic valve is normal in structure and function. The aortic valve is trileaflet. There is no aortic stenosis. Mild aortic regurgitation. Pulmonic Valve The pulmonic valve is normal in structure and function. There is no pulmonic valvular regurgitation. Great Vessels The aortic root is normal size. Pericardium/Pleural A circumferential pericardial effusion is noted. There is a moderate to large pericardial effusion. There is diastolic RA and RV compression consistent with early tamponade. Conclusion A complete two-dimensional transthoracic echocardiogram was performed (2D, M-mode, Doppler and color flow Doppler). There is moderate to severe concentric left ventricular hypertrophy. Left ventricular systolic function is low normal. Ejection Fraction = 50-55%. There are no wall motion abnormalities. Valvular appearance is normal. There is trace mitral regurgitation. There is trace tricuspid regurgitation. Pacemaker leads are noted in the RA and RV. A circumferential pericardial effusion is noted. There is a moderate to large circumferential pericardial effusion. There is no evidence of tamponade. Compared to a prior echo from 06/01/2016, there has been an interval increase in the size of the pericardial effusion. Final Reading Physician: Axel Walker signed on 06/04/2016 01:04 PM Ordering Physician: JEAN PAUL HEBERT Performed By: Jordan Anderson, CS
[2016-06-04] MEDS: KETOROLAC 15 MG/1 ML SDV IVP SCH (18:18)
[2016-06-05] MEDS: KETOROLAC 15 MG/1 ML SDV IVP SCH ×2 (00:03→06:31)
[2016-06-05 05:33] LABS: ADD DIFF? NO; ADD MORPH? NO; ADD SCAN? NO; ATYPICAL LYMPHOCYTE FLAG 10 (0-99); FRAGMENT RBC FLAG 10 (0-99); HEMATOCRIT 32.3 % (40.0-51.0); HEMOGLOBIN 10.8 g/dL (13.7-17.5); LEFT SHIFT FLG 0 (0-99); LIPEMIA HEMOLYSIS FLAG 80 (0-99); MEAN CELL HEMOGLOBIN 32.3 pg (27.9-34.1); MEAN CELL HEMOGLOBIN CONCENTR. 33.4 g/dL (32.4-36.7); MEAN CELL VOLUME 96.7 fL (81.5-99.8); MEAN PLATELET VOLUME 12.6 fL (8.7-11.7); PLATELET CLUMPS FLAG 10 (0-99); PLATELET COUNT 107 10^3/uL (150-400); RED BLOOD CELL COUNT 3.34 10^6/uL (4.40-6.38); RED CELL DISTRIBUTION WIDTH 13.4 % (11.5-15.2)
[2016-06-05 05:58] LABS: ANION GAP 8 mEq/L (8-16); CALCIUM 8.7 mg/dL (8.5-10.4); CARBON DIOXIDE 23 mEq/l (22-31); CHLORIDE 108 mEq/L (97-110); CREATININE 1.4 mg/dL (0.7-1.3); GLOMERULAR FILTRATION RATE 48; GLUCOSE 103 mg/dL (70-100); POTASSIUM 4.5 mEq/L (3.5-5.2); SODIUM 139 mEq/L (134-144)
--- NOTE | 2016-06-05 08:41 | CPEKG ---
Heart Rate: 64 RR Interval: 938 P-R Interval: 239 QRSD Interval: 98 QT Interval: 416 QTC Interval: 430 P [place]: -61 QRS [place]: -58 T Wave [place]: -4 EKG Severity - ABNORMAL ECG - EKG Impression: SINUSATRIAL RHYTHM EKG Impression: ATRIAL PREMATURE COMPLEX EKG Impression: FIRST DEGREE AV BLOCK EKG Impression: LAD, CONSIDER LAFB OR INFERIOR INFARCT EKG Impression: LOW VOLTAGE IN FRONTAL LEADS EKG Impression: BORDERLINE R WAVE PROGRESSION, ANTERIOR LEADS EKG Impression: BORDERLINE T ABNORMALITIES, INFERIOR LEADS Electronically Signed By: Bert Matthews 05-Jun-2016 09:06:40
[2016-06-05] MEDS ORDERED: FUROSEMIDE 20 MG/2 ML VIAL IVP ONE (09:19)
--- NOTE | 2016-06-05 09:23 | SOAPPROG ---
CHARMA[facility] Progress Note Assessment/Plan: Assessment: Mr. Lopez presents now 5 days after a dual-chamber pacemaker was implanted with some clinical evidence at the time of implantation of a lead perforation with an increasing pericardial effusion associated with evidence of a probable microperforation of the right atrial lead. Fortunately, he is hemodynamically stable. Interrogation of his pacemaker indicates normal device function. While he does have a modest sized pericardial effusion there is no indication of pericardial tamponade. This case was discussed with cardiothoracic surgery as well. At the present time, I think that we can manage him conservatively. I have started him on nonsteroidal anti-inflammatory agents in the form of Toradol as well as colchicine. He was placed on a proton pump inhibitor for protection against peptic ulcer disease. I will plan to perform serial electrocardiograms as well as laboratory tests. I will repeat an echocardiogram here in the next several days. As long as we see clinical improvement I think we will try to maintain his lead. If he has worsening symptoms, fails to respond to therapy, develops declining pacemaker function or has objective findings of an increasing pericardial effusion, at that point I think that we should extract the right atrial lead. This would necessitate placement of a pericardial drain and to have cardiothoracic surgery on standby. 06/05/2016: Clinically, he appears a little improved today. His pain has decreased. He does complain of a little bit of dyspnea which may be related to volume overload or potential progression of his pericardial effusion. The recent decline in his hematocrit was a little concerning. Additionally, a little concerned about his increasing creatinine. Plan: 1. I will change him over to p.o. nonsteroidals . 2. I have written for a low-dose of Lasix 20 mg IV. 3. I will repeat a limited echocardiogram today. 4. He will have a repeat chemistry panel and CBC tomorrow morning. 5. Depending on his clinical course we can make a decision regarding the necessity for pericardiocentesis and possibly right atrial lead repositioning. 06/05/16 09:21 Subjective: He experienced some dyspnea and ongoing right upper quadrant and xiphoidal respiratory phasic pain last night. He was noted to be a little hypoxic. After being placed on supplemental oxygen and he feels much better. Today he has very minimal pain. He has remained hemodynamically stable. Objective: Vital Signs Temp Pulse Resp BP Pulse Ox 36.6 C 60 14 127/74 H 95 06/05/16 07:24 06/05/16 07:24 06/05/16 07:24 06/05/16 07:24 06/05/16 07:24 Laboratory Results 06/05/16 03:53 06/05/16 03:53 06/04/16 06/05/16 06/06/16 05:59 05:59 05:59 Intake Total 1230 Balance 1230 PT 14.5 SEC (12.0-15.0) 06/04/16 08:15 INR 1.14 (0.83-1.16) 06/04/16 08:15 Physical Exam - Physical Exam General Appearance: WD/WN, no apparent distress Neck: full range of motion, other ( No JVD) Respiratory: lungs clear, No crackles, No rales, No rhonchi Cardiac/Chest: regular rate, rhythm, edema (mild by pedal), No gallop, No JVD Peripheral Pulses: 2+: carotid (R), carotid (L) Abdomen: non-tender, soft, No organomegaly Neuro/Psych: alert, normal mood/affect, oriented x 3 ICD10 Worksheet Patient Problems: Problems Problem Status Diagnosed Pacemaker complications Acute Pericardial effusion Acute
[2016-06-05] MEDS: PANTOPRAZOLE SODIUM 40 MG TAB PO SCH (10:11)
[2016-06-05] MEDS: COLCHICINE 0.6 MG CAP/TAB PO SCH ×2 (10:13→23:40)
[2016-06-05] MEDS: GLUCOSAMINE/CHONDROITIN CAP PO SCH (10:13)
[2016-06-05] MEDS: CHOLECALCIFEROL VIT D3 2,000 UNITS TAB/CAP PO SCH (10:13)
--- NOTE | 2016-06-05 10:48 | ECHO ---
[id number] + + [address] : : [place] [address] : : [phone] + + Adult Echocardiographic Report + -----+ :Name: Mae SANTO Date: 06/05/2016 09:33 AM : : Hospital Admission Number: [id number] Location : 207: :: 1925 Gender: Male : :Age: 89 yrs Race: WH : :Reason For Study: Eval Pericardial Effusion : :History: Known pericardial effusion : + -----+ Pericardium/Pleural Moderate size pericardial effusion. Compared to the previous exam of 06/04/16 the effusion appears to be the same. Conclusion This is a limited echo to evaluate for a known moderate calcification. Moderate size pericardial effusion. Compared to the previous exam of 06/04/16 the effusion appears to be the same. There are no echo parameters to suggest tamponade. Final Reading Physician: Axel Walker signed on 06/05/2016 10:46 AM Ordering Physician: Steven Moctezuma Performed By: Jordan Anderson, CS
[2016-06-05] MEDS: IBUPROFEN 600 MG TAB PO SCH ×2 (13:32→23:40)
[2016-06-06] MEDS: IBUPROFEN 600 MG TAB PO SCH ×3 (04:25→21:22)
[2016-06-06 05:04] LABS: % IMMATURE GRANULYOCYTES 0.3 % (0.0-1.1); ABSOLUTE IMMATURE GRANULOCYTES 0.01 10^3/uL (0.00-0.10); ADD DIFF? NO; ADD MORPH? NO; ADD SCAN? NO; ATYPICAL LYMPHOCYTE FLAG 10 (0-99); FRAGMENT RBC FLAG 0 (0-99); HEMATOCRIT 29.9 % (40.0-51.0); HEMOGLOBIN 10.1 g/dL (13.7-17.5); LEFT SHIFT FLG 0 (0-99); LIPEMIA HEMOLYSIS FLAG 90 (0-99); MEAN CELL HEMOGLOBIN 31.8 pg (27.9-34.1); MEAN CELL HEMOGLOBIN CONCENTR. 33.8 g/dL (32.4-36.7); MEAN PLATELET VOLUME 12.1 fL (8.7-11.7); PLATELET CLUMPS FLAG 0 (0-99); PLATELET COUNT 100 10^3/uL (150-400); RED BLOOD CELL COUNT 3.18 10^6/uL (4.40-6.38); RED CELL DISTRIBUTION WIDTH 13.3 % (11.5-15.2)
[2016-06-06 05:22] LABS: ANION GAP 9 mEq/L (8-16); CALCIUM 8.7 mg/dL (8.5-10.4); CARBON DIOXIDE 23 mEq/l (22-31); CHLORIDE 109 mEq/L (97-110); CREATININE 1.4 mg/dL (0.7-1.3); GLOMERULAR FILTRATION RATE 48; GLUCOSE 95 mg/dL (70-100); POTASSIUM 4.3 mEq/L (3.5-5.2); SODIUM 141 mEq/L (134-144)
[2016-06-06] MEDS: GLUCOSAMINE/CHONDROITIN CAP PO SCH (08:45)
[2016-06-06] MEDS: CHOLECALCIFEROL VIT D3 2,000 UNITS TAB/CAP PO SCH (08:45)
[2016-06-06] MEDS: COLCHICINE 0.6 MG CAP/TAB PO SCH ×2 (08:45→21:22)
[2016-06-06] MEDS: PANTOPRAZOLE SODIUM 40 MG TAB PO SCH (08:46)
--- NOTE | 2016-06-06 09:57 | SOAPPROG ---
SOTRACY Progress Note Assessment/Plan: Assessment: Mr. Lopez presents now 5 days after a dual-chamber pacemaker was implanted with some clinical evidence at the time of implantation of a lead perforation with an increasing pericardial effusion associated with evidence of a probable microperforation of the right atrial lead. Fortunately, he is hemodynamically stable. Interrogation of his pacemaker indicates normal device function. While he does have a modest sized pericardial effusion there is no indication of pericardial tamponade. This case was discussed with cardiothoracic surgery as well. At the present time, I think that we can manage him conservatively. I have started him on nonsteroidal anti-inflammatory agents in the form of Toradol as well as colchicine. He was placed on a proton pump inhibitor for protection against peptic ulcer disease. I will plan to perform serial electrocardiograms as well as laboratory tests. I will repeat an echocardiogram here in the next several days. As long as we see clinical improvement I think we will try to maintain his lead. If he has worsening symptoms, fails to respond to therapy, develops declining pacemaker function or has objective findings of an increasing pericardial effusion, at that point I think that we should extract the right atrial lead. This would necessitate placement of a pericardial drain and to have cardiothoracic surgery on standby. 06/05/2016: Clinically, he appears a little improved today. His pain has decreased. He does complain of a little bit of dyspnea which may be related to volume overload or potential progression of his pericardial effusion. The recent decline in his hematocrit was a little concerning. Additionally, a little concerned about his increasing creatinine. 06/06/2016: Clinically, he has made substantial improvement. He has no dyspnea or chest discomfort. I am, however, concerned about the decline in his hemoglobin and hematocrit. Plan: 1. I have ordered a PA and lateral chest x-ray to rule out hemothorax. 2. Will repeat a very brief limited echo to reassess his pericardial effusion. 3. We will continue with oral nonsteroidals at the present time. 4. We will plan to repeat a CBC tomorrow. 06/06/16 09:55 Subjective: States that he is feeling better today than he did at the time of admission and yesterday. He slept well. He is not having any dyspnea. He denies any chest discomfort including chest pain with deep inspiration. Objective: Vital Signs Temp Pulse Resp BP Pulse Ox 36.8 C 64 20 113/73 94 06/06/16 08:19 06/06/16 08:19 06/06/16 08:19 06/06/16 08:19 06/06/16 08:19 Laboratory Results 06/06/16 03:58 06/06/16 03:58 06/05/16 06/06/16 06/07/16 05:59 05:59 05:59 Intake Total 740 200 Balance 740 200 PT 14.5 SEC (12.0-15.0) 06/04/16 08:15 INR 1.14 (0.83-1.16) 06/04/16 08:15 Physical Exam - Physical Exam General Appearance: WD/WN, no apparent distress Neck: non-tender Respiratory: lungs clear Cardiac/Chest: regular rate, rhythm, other (Diffuse ecchymosis of the chest wall , small pocket hematoma.) Peripheral Pulses: 2+: carotid (R), carotid (L) ICD10 Worksheet Patient Problems: Problems Problem Status Diagnosed Pacemaker complications Acute Pericardial effusion Acute
--- NOTE | 2016-06-06 11:21 | ECHO ---
[id number] + + [address] : : [place] [address] : : [phone] + + Adult Echocardiographic Report + -----+ :Name: Mae SANTO Date: 06/06/2016 10:25 AM : : Hospital Admission Number: [id number] Location : 207: :: 1925 Gender: Male : :Age: 89 yrs Race: WH : :Reason For Study: F/U pericardial effusion : :History: Pericardial Effusion : + -----+ Pericardium/Pleural Moderate size pericardial effusion. There are no echocardiographic indications of cardiac tamponade. Conclusion This is an limited echo to evaluate pericardial effusion. Moderate size pericardial effusion. Compared to the previous exam on 06/05/2016, there has been no significant change. There are no echocardiographic indications of cardiac tamponade. Final Reading Physician: Axel Walker signed on 06/06/2016 11:19 AM Ordering Physician: Steven Moctezuma Performed By: Yoko Barrera
--- NOTE | 2016-06-06 12:35 | DX ---
PA and Lateral Chest 11:21 AM on June 06, 2016 Indication: Follow up pacemaker. Comparison: Two-view chest dated June 04, 2016. Findings: Cardiomegaly due to hemopericardium and configuration of the left anterior chest wall dual- lead pacemaker are unchanged. Minimal left basilar atelectasis and bilateral small bilateral pleural effusions are minimally worse. No interstitial edema or pneumothorax. Impression: 1. Cardiomegaly due to hemopericardium unchanged. 2. Unchanged configuration of pacemaker leads. 3. Worsening left basilar atelectasis and small bilateral pleural effusions.
[2016-06-06] MEDS ORDERED: FUROSEMIDE 20 MG/2 ML VIAL IVP ONE (16:21)
--- NOTE | 2016-06-07 04:54 | CPEKG ---
Heart Rate: 63 RR Interval: 952 P-R Interval: 264 QRSD Interval: 112 QT Interval: 460 QTC Interval: 471 P [place]: 151 QRS [place]: -75 T Wave [place]: 79 EKG Severity - ABNORMAL ECG - EKG Impression: ATRIAL-PACED COMPLEXES EKG Impression: FIRST DEGREE AV BLOCK EKG Impression: NONSPECIFIC IVCD WITH LAD EKG Impression: INFERIOR INFARCT, OLD EKG Impression: ANTEROLATERAL INFARCT, OLD Electronically Signed By: Romy Pérez 07-Jun-2016 08:19:14
[2016-06-07 05:29] LABS: ADD DIFF? NO; ADD MORPH? NO; ADD SCAN? NO; ATYPICAL LYMPHOCYTE FLAG 10 (0-99); FRAGMENT RBC FLAG 0 (0-99); HEMATOCRIT 30.8 % (40.0-51.0); HEMOGLOBIN 10.1 g/dL (13.7-17.5); LEFT SHIFT FLG 0 (0-99); LIPEMIA HEMOLYSIS FLAG 80 (0-99); MEAN CELL HEMOGLOBIN 31.6 pg (27.9-34.1); MEAN CELL HEMOGLOBIN CONCENTR. 32.8 g/dL (32.4-36.7); MEAN CELL VOLUME 96.3 fL (81.5-99.8); MEAN PLATELET VOLUME 12.7 fL (8.7-11.7); PLATELET CLUMPS FLAG 10 (0-99); PLATELET COUNT 119 10^3/uL (150-400); RED CELL DISTRIBUTION WIDTH 13.2 % (11.5-15.2)
[2016-06-07 05:41] LABS: ANION GAP 8 mEq/L (8-16); CALCIUM 8.5 mg/dL (8.5-10.4); CARBON DIOXIDE 24 mEq/l (22-31); CHLORIDE 109 mEq/L (97-110); CREATININE 1.3 mg/dL (0.7-1.3); GLOMERULAR FILTRATION RATE 52; GLUCOSE 86 mg/dL (70-100); SODIUM 141 mEq/L (134-144)
[2016-06-07] MEDS: IBUPROFEN 600 MG TAB PO SCH (07:05)
[2016-06-07] MEDS: CHOLECALCIFEROL VIT D3 2,000 UNITS TAB/CAP PO SCH (08:33)
[2016-06-07] MEDS: PANTOPRAZOLE SODIUM 40 MG TAB PO SCH (08:33)
[2016-06-07] MEDS: GLUCOSAMINE/CHONDROITIN CAP PO SCH (08:33)
[2016-06-07] MEDS: COLCHICINE 0.6 MG CAP/TAB PO SCH (08:33)
[2016-06-07] MEDS ORDERED: METOPROLOL SUCCINATE XR 25 MG TAB PO SCH (10:00)
--- NOTE | 2016-06-07 11:02 | GDS ---
[f rep st] DISCHARGE SUMMARY PRIMARY CARDIOLOGISTS: Dr. Harrison Jauregui and Dr. Raad Gray. ADMISSION DIAGNOSIS: 1. Heart failure with preserved ejection fraction and severe LVH. 2. Sick sinus syndrome, status post dual-chamber pacemaker on May 30. 3. Pericardial effusion, likely hemopericardium related to right atrial lead perforation. 4. Chronic renal insufficiency. 5. Coronary artery calcification. 6. Valvular heart disease. DISCHARGE DIAGNOSES: 1. Heart failure with preserved ejection fraction, LVH. 2. Sick sinus syndrome, status post dual chamber pacemaker. 3. Hemopericardium, which has been stable. 4. Anemia. 5. Chronic renal insufficiency. 6. Ventricular tachycardia. 7. Coronary artery calcification. 8. Valvular heart disease. PROCEDURES DURING THIS ADMISSION: 1. Echocardiogram x3 showing moderate circumferential pericardial effusion without tamponade. 2. Chest CT on June 04 with moderate hemopericardium and likely perforation of the right atrial pacemaker lead without definite perforation of the right ventricular lead. Coronary artery atherosc lerosis. Tiny pulmonary nodules. 3. Head CT on June 04, diffuse cerebral atrophy. No acute intracranial abnormality. 4. Chest x-ray June 06, cardiomegaly is stable. Stable configuration of pacemaker leads. Lef t basilar atelectasis and small bilateral pleural effusions. 5. Pacemaker check: Normal device function. 6. EKG 06/07 shows AV sequential pacing. EKG to a sinus rhythm with 1st degree AV block, poor R-wav e progression, left anterior fascicular block and inferior T-wave abnormalities. HOSPITAL COURSE: The patient is a pleasant 89-year-old male, who has had difficulties with presyncop e, lower extremity edema and profound fatigue over the past several months. He was initially evaluat ed by Dr. Paul and a stress test was performed at [facility]. This showed normal myocardial per fusion with a left ventricular ejection fraction of 45%. He was therefore seen by my partner, Dr. Faustino lazar. A Holter monitor showed frequent pauses with sinus node arrest. It was felt that some of his s ymptoms may be related to sick sinus syndrome. Therefore, on May 30 he had a dual chamber [employer] pacemaker placed by Dr. Gray. This was complicated by a pericardial effusion, possibly relate d to his right atrial lead perforation. He was stable and therefore discharged home. He was readmitted on June 04 with respirophasic chest pain and a stable moderate pericardial eff usion without hemodynamic compromise or echocardiographic evidence of tamponade. He was treated with nonsteroidal anti-inflammatories and colchicine with overall improvement in his chest discomfort. Divina sheehan did have a decline in his hemoglobin from 13.2 the day of his pacemaker to 10.1 on June 07. There was no overt GI bleeding, but he did have a large ecchymoses related to pocket hematoma. He had 3 echocardiograms over the course of his hospital stay which showed stability of his pericardi al effusion. Again, he had no hemodynamic compromise. His pacemaker function was normal. On he had a 7-beat run of VT that was asymptomatic. He was started on low-dose metoprolol at th at time. DISCHARGE PHYSICAL EXAM: VITAL SIGNS: Blood pressure 132/66, heart rate 83, oxygen saturation 93% o n 2.5 L nasal cannula, he has also been demonstrated to have oxygen saturation of 92% on room air. A febrile. GENERAL: Frail, elderly male, in no acute distress. CARDIOVASCULAR: JVP is 10 cm of wate r. Regular rhythm with occasional ectopy. Soft early systolic murmur at the left lower sternal bord er. LUNGS: Overall clear bilaterally without wheezes, rhonchi or rales. CHEST/ABDOMEN: He has an extensive ecchymoses starting at his pacemaker pocket and extending over his anterior thorax and abdo men. He states this has improved since admission. EXTREMITIES: Bilateral 1+ pitting edema to the m id brunner bilaterally. Diffuse petechiae. LABORATORY DATA: CBC on June 07: White count 3.99, hematocrit 30.8, which is stable and plate lets are 119, which is also stable. INR on the was 1.14. Basic metabolic panel: Sodium 141, po tassium 4, chloride 109, bicarb 24, BUN 33, creatinine 1.3. His TSH was normal on May 16. Ramona dayton cortisol was 5.7 on May 16. He did have a protein electrophoresis without monoclonal prot eins on May 16. DISCHARGE MEDICATIONS: Please see formal med reconciliation. New medications include colchicine and metoprolol succinate 12.5 mg daily. He will not be discharged on ibuprofen given his anemia and his tory of peptic ulcer disease. DISCHARGE INSTRUCTIONS: 1. Follow up with Dr. Gray for pacemaker check next week. 2. Follow up with Dr. Jauregui for ongoing heart failure management next week. 3. He does have a urine protein electrophoresis pending. As the patient may have a form of amyloid, although his SPEP was normal. 4. The patient will be having PT/OT evaluation this morning, to ensure that he is safe to be dischar ged home. 5. Follow up with Dr. Paul in 1-2 weeks. /[id number]/MODL
--- NOTE | 2016-06-07 11:25 | PDIAF ---
- Diagnosis Code Status: Full Code - Medication Management Discharge Medications: Medications to Continue on Transfer Cholecalciferol Vit D3 [Vitamin D3 2000 units tab (OTC)] 2,000 units PO DAILY [Last Taken 05/28/16] Glucosamine/Chondroitin [Glucosamine/Chondroitin (*)] 1 each PO DAILY 05/29/16 [ Last Taken 05/28/16] Herbals/Supplements -Info Only 1 ea PO DAILY 05/29/16 [Last Taken Unknown] Omeprazole [Prilosec 20 mg] 20 mg PO DAILY 05/29/16 [Last Taken 06/03/16] Temazepam 7.5 mg PO HS PRN 06/04/16 [Last Taken Unknown] Acetaminophen [Tylenol 325mg (*)] 650 mg PO Q4HRS PRN #0 tab 06/07/16 [Last Taken Unknown] Colchicine [Colchicine (*)] 0.6 mg PO BID #60 ea 06/07/16 [Last Taken Unknown] Furosemide [Lasix 20 MG (*)] 20 mg PO DAILY #30 tab 06/07/16 [Last Taken Unknown ] Metoprolol Succinate Xr [Toprol Xl 25 mg (*)] 12.5 mg PO DAILY #30 tab 06/07/16 [Last Taken Unknown] Discharge Medications: Refer to the Discharge Home Medication list for PRN reason. - Orders Services needed: Registered Nurse Diet Recommendation: no restrictions on diet Weigh Patient: daily - Labs/Radiology BMP Date: 06/11/16 CBC Date: 06/11/16 - Follow Up Care Current Providers and Referrals: Harrison Jauregui MD [Medical Doctor] - (3-5 days. please call for appointment) MICH HELTON [Primary Care Provider] - (2 weeks. Please call for appt) Patient,NotPresent [Unknown] - As per Instructions Raad Gray MD [Medical Doctor] - (3-5 days for pacemaker check and visit with Dr. Gray) Steven Moctezuma MD [Medical Doctor] -
[2016-06-07 11:56] VITALS: BP 115/59; PULSE 60; RESP 16; TEMP 98.2; O2SAT 94
[2016-06-10 15:26] LABS: PEUR A/G RATIO 0.81 %; PEUR ALBUMIN 45 %; PEUR ALPHA 1-GLOBULIN 9 %; PEUR ALPHA 2-GLOBULIN 23 %; PEUR BETA-GLOBULIN 16 %; PEUR GAMMA-GLOBULIN 6 %; PEUR IMPRESSION See Comments
== END 2016-06-07 12:47 | disposition home health service (06) | DRG 920 ==
LOC: EDUNIT# → F2W 10:50 → OBSVTOIN 06-05 09:25
PROVIDERS: ADMIT Internal Medicine Cardiovascular Disease; ATTEND Internal Medicine Cardiovascular Disease
DX: I97.620 Postprocedural hemorrhage of a circulatory system organ or structure following other procedure (principal); I31.2 Hemopericardium, not elsewhere classified; L76.32 Postprocedural hematoma of skin and subcutaneous tissue following other procedure; I51.7 Cardiomegaly; I49.5 Sick sinus syndrome; N18.9 Chronic kidney disease, unspecified; Z95.0 Presence of cardiac pacemaker
CPT/HCPCS: 84166-90; 96374; 97165-GO; G0378; G8987-GO-CI; G8988-GO-CI; G8989-GO-CI; J1885